=== PATIENT | male | born 1970 | race Hispanic/Latino ===

== ENCOUNTER 2021-08-08 11:43 | Emergency (ER) | payer SELFPAY ==
[2021-08-08] MEDS ORDERED: DIAZEPAM 5 MG TABLET ONE (12:21)
[2021-08-08] MEDS ORDERED: HYDROCODONE/APAP 5/325 MG TAB ONE (12:21)
[2021-08-08 13:34] LABS: Urine Blood Trace-intact (Negative); Urine Glucose Trace (Negative); Urine Protein Negative (Negative); Urine pH 7.5 (5.0-7.0)
[2021-08-08 14:04] LABS: Urine Bacteria NONE SEEN /HPF (NONE SEEN); Urine RBC <5 /HPF (NONE SEEN)
[2021-08-08 14:50] LABS: Absolute Lymphocytes (CBC) 1.8 K/uL (0.7-4.9); Lymphocytes % 12.2 % (15.3-44.8); MPV 8.7 fL (7.6-11.3); RBC Red Blood Cell Count 5.15 M/uL (4.33-5.43)
[2021-08-08 14:58] LABS: Potassium 3.9 mmol/L (3.5-5.1)
--- NOTE | 2021-08-08 15:15 | RAD REPORT ---
EXAM DESCRIPTION: CT - Abdomen Pelvis Wo Contrast - 08/08/2021 2:59 pm CLINICAL HISTORY: Abdominal pain /back pain COMPARISON: None TECHNIQUE: Computed axial tomography of the abdomen and pelvis was obtained. IV and oral contrast we re not requested. All CT scans are performed using dose optimization technique as appropriate and may include automated exposure control or mA/KV adjustment according to patient size. FINDINGS: The evaluation of solid organs, vessels and bowel is limited secondary to the lack of con trast administration. Fatty liver Spleen, pancreas, adrenals and kidneys appear grossly normal. Small bilateral inguinal hernias contain fat There is no evidence of diverticulitis. Mild bladder distention Supraumbilical hernia contains fat. The neck measures 1 centimeter. The herniated sac 5 centimeters. Mild stranding is present within the fat Spondylosis of lumbar spine results in central spinal stenosis IMPRESSION: Moderate supraumbilical hernia containing fat. Mild stranding within the fat may indicat e mild inflammation
--- NOTE | 2021-08-08 15:41 | EDPHYS ---
Physician Documentation [facility] Name: Brett Fischer Age: 50 yrs Sex: Male : 1970 Arrival Date: 08/08/2021 Time: 11:45 Bed 18 Private MD: Ai Cui H ED Physician Aden Almaguer HPI: 08/08 15:47 This 50 yrs old Male presents to ER via Wheelchair with complaints of Hip ms3 Pain, Low Back Pain. 15:47 The patient presents with pain that is acute, with no known mechanism of injury. The ms3 symptoms are located in the low back. The pain radiates to the left leg. The problem was sustained walking. Onset: The symptoms/episode began/occurred acutely, 1 day(s) ago. Modifying factors: The patient symptoms are alleviated by nothing, the patient symptoms are aggravated by any movement. Associated signs and symptoms: The patient has no apparent associated signs or symptoms. Severity of symptoms: At their worst the symptoms were severe, a " 10" out of "10", in the emergency department the symptoms are unchanged. Historical: - Allergies: 12:03 No Known Allergies; ll1 - PMHx: 12:03 Hypertensive disorder; ll1 - Immunization history:: Adult Immunizations. - Social history:: Smoking status: Patient denies any tobacco usage or history of. ROS: 15:47 Constitutional: Negative for fever, and chills. Eyes: Negative for injury, pain, ms3 redness, and discharge, Neck: Negative for injury, pain, and swelling, Cardiovascular: Negative for chest pain, and palpitations. Respiratory: Negative for shortness of breath, cough, wheezing, and pleuritic chest pain, Skin: Negative for injury, rash, and discoloration. 15:47 Back: Positive for pain with movement. 15:47 Skin: Positive for Exam: 15:47 Constitutional: This is a well developed, well nourished patient who is awake, alert, ms3 and in no acute distress. Head/Face: Normocephalic, atraumatic. Neck: Trachea midline, no cervical lymphadenopathy. Supple, full range of motion without nuchal rigidity, or vertebral point tenderness. No Meningismus. Chest/axilla: Normal chest wall appearance and motion. Nontender with no deformity. Cardiovascular: Regular rate and rhythm with a normal S1 and S2. No gallops, murmurs, or rubs. Normal PMI, no JVD. No pulse deficits. Respiratory: Lungs have equal breath sounds bilaterally, clear to auscultation and percussion. No rales, rhonchi or wheezes noted. No increased work of breathing, no retractions or nasal flaring. Abdomen/GI: Soft, non-tender, with normal bowel sounds. No distension or tympany. No guarding or rebound. No evidence of tenderness throughout. Skin: Warm, dry with normal turgor. Normal color with no rashes, no lesions, and no evidence of cellulitis. 15:47 Back: pain, that is severe, of the left low back, ROM is painful, with all movement, normal spinal alignment noted, CVA tenderness, is absent, vertebral tenderness, is not appreciated, muscle spasm, is appreciated in the left low back. Vital Signs: 12:03 BP 192 / 76; Pulse 84; Resp 18; Temp 99.3; Pulse Ox 98% ; Pain 10/10; ll1 14:24 BP 172 / 88; Pulse 76; Resp 17; Temp 98.6(O); Pulse Ox 100% ; Pain 4/10; jh6 16:00 BP 170 / 86; Pulse 72; Resp 18; Pulse Ox 100% ; Pain 4/10; jh6 MDM: 11:56 Patient medically screened. ms3 15:47 Differential diagnosis: strain, sciatica, Herniated disc UTI, Kidney stone. Data ms3 reviewed: vital signs, nurses notes, lab test result(s), radiologic studies, and as a result, I will discharge patient. Data interpreted: Pulse oximetry: on room air is 100 %. Interpretation: normal. Counseling: I had a detailed discussion with the patient and/or guardian regarding: the historical points, exam findings, and any diagnostic results supporting the discharge/admit diagnosis, lab results, radiology results, the need for outpatient follow up, to return to the emergency department if symptoms worsen or persist or if there are any questions or concerns that arise at home. ED course: Discussed labs, CT, physical exam findings with patient. Patient to follow-up with primary care physician in 2 to 3 days. Patient understands and agrees with plan. All questions were answered. Return precautions discussed include worsening symptoms, or any other concerns. On reevaluation patient is alert and oriented x4, in no apparent distress, nontoxic-appearing, speaking full sentences, without bowel/ bladder incontinence, weakness, or numbness.. 08/08 12:29 Order name: Urine Microscopic Only; Complete Time: 14:54 ms3 08/08 13:34 Order name: Urine Dipstick-Ancillary; Complete Time: 14:04 EDMS 08/08 14:07 Order name: CBC with Diff; Complete Time: 15:10 ms3 08/08 14:07 Order name: BMP; Complete Time: 15:10 ms3 08/08 14:07 Order name: CT Abd/Pelvis - Without Contrast; Complete Time: 15:26 ms3 08/08 12:29 Order name: Urine Dipstick-Ancillary (obtain specimen) ms3 08/08 14:07 Order name: Labs collected and sent; Complete Time: 14:37 ms3 Administered Medications: 12:16 Drug: Valium (diazepam) 10 mg Route: PO; [facility] 16:00 Follow up: Response: No adverse reaction [facility] 12:17 Drug: HYDROcodone-acetaminophen 5 mg-325 mg 1 tabs Route: PO; [facility] 16:00 Follow up: Response: No adverse reaction [facility] 15:41 Drug: Ketorolac 15 mg Route: IVP; Site: right antecubital; [facility] 16:00 Follow up: Response: No adverse reaction [facility] Disposition Summary: 08/08/21 15:41 Discharge Ordered Location: Home ms3 Condition: Stable ms3 Diagnosis - Low back pain ms3 Followup: ms3 - With: Ai Cui, - When: 2 - 3 days - Reason: Recheck today's complaints Discharge Instructions: - Discharge Summary Sheet ms3 - Acute Back Pain, Adult ms3 Forms: - Medication Reconciliation Form ms3 - Thank You Letter ms3 - Antibiotic Education ms3 - Prescription Opioid Use ms3 - Work release form 6 Prescriptions: - Ibuprofen 600 mg Oral Tablet - take 1 tablet by ORAL route every 6 hours As needed take with food; 30 tablet; ms3 Refills: 0, Product Selection Permitted - Cyclobenzaprine 10 mg Oral Tablet - take 1 tablet by ORAL route every 8 hours As needed; 30 tablet; Refills: 0, ms3 Product Selection Permitted Signatures: Dispatcher [employer] Venkat Jeter RN RN ll1 Aden Almaguer DO DO ms3 Mariel Erickson RN RN jh6 Corrections: (The following items were deleted from the chart) 17:01 15:47 Constitutional: Negative for fever, and chills. Eyes: Negative for injury, pain, ms3 redness, and discharge, Neck: Negative for injury, pain, and swelling, Cardiovascular: Negative for chest pain, and palpitations. Respiratory: Negative for shortness of breath, cough, wheezing, and pleuritic chest pain, ms3
--- NOTE | 2021-08-08 15:41 | ER ---
Nurse's Notes [facility] Name: Brett Fischer Age: 50 yrs Sex: Male : 1970 Arrival Date: 08/08/2021 Time: 11:45 Bed 18 Private MD: Ai Cui H Diagnosis: Low back pain Presentation: 08/08 12:03 Chief complaint: Patient states: L hip and back pain started yesterday. No trauma or ll1 falls. Went to chiropractor yesterday, no relief. Coronavirus screen: Client denies travel out of the [place] in the last 14 days. At this time, the client does not indicate any symptoms associated with coronavirus-19. Ebola Screen: Patient denies travel to an Ebola-affected area in the 21 days before illness onset. Initial Sepsis Screen: Does the patient meet any 2 criteria? No. Patient's initial sepsis screen is negative. Does the patient have a suspected source of infection? Yes: Bone or joint infection. Risk Assessment: Do you want to hurt yourself or someone else? Patient reports no desire to harm self or others. Onset of symptoms was August 07, 2021. 12:03 Method Of Arrival: Wheelchair ll1 12:03 Acuity: SHAR 3 ll1 Triage Assessment: 12:05 General: Appears uncomfortable, Behavior is calm, cooperative, appropriate for age. ll1 Pain: Complains of pain in L hip Pain currently is 10 out of 10 on a pain scale. Quality of pain is described as aching, throbbing, Aggravated by increased activity. Musculoskeletal: Reports pain in L hip. Historical: - Allergies: 12:03 No Known Allergies; ll1 - PMHx: 12:03 Hypertensive disorder; ll1 - Immunization history:: Adult Immunizations. - Social history:: Smoking status: Patient denies any tobacco usage or history of. Screenin:10 Abuse screen: Denies threats or abuse. jh6 12:10 Nutritional screening: No deficits noted. Tuberculosis screening: No symptoms or risk jh6 factors identified. Fall Risk Gait- Impaired (20 pts.). Assessment: 12:10 General: Appears uncomfortable, Behavior is calm, cooperative. jh6 12:10 Pain: Complains of pain in left lower back and left gluteus mike Pain radiates to jh6 left hamstring and left calf Pain currently is 9 out of 10 on a pain scale. Quality of pain is described as burning, sharp, stabbing, Pain began 1 day ago. Is continuous, Alleviated by repositioning, Aggravated by increased activity, weight bearing. Musculoskeletal: Circulation, motion, and sensation intact. Capillary refill < 3 seconds, Range of motion: limited in left hip and left knee LIMITED DUE TO PAIN 14:22 Reassessment: Patient and/or family updated on plan of care and expected duration. Pain jh6 level reassessed. Patient is alert, oriented x 3, equal unlabored respirations, skin warm/dry/pink. states that pain is better but still present. shooting pain up back when he stood to use the urinal. reports that sitting still in the bed the pain is much better. pain all started after going for an adjustment yesterday at the chiropractor Patient states symptoms have improved. Vital Signs: 12:03 BP 192 / 76; Pulse 84; Resp 18; Temp 99.3; Pulse Ox 98% ; Pain 10/10; ll1 14:24 BP 172 / 88; Pulse 76; Resp 17; Temp 98.6(O); Pulse Ox 100% ; Pain 4/10; jh6 16:00 BP 170 / 86; Pulse 72; Resp 18; Pulse Ox 100% ; Pain 4/10; jh6 ED Course: 11:45 Patient arrived in ED. mr 11:45 Ai Cui DO is Private Physician. mr 11:47 Aden Almaguer DO is Attending Physician. ms3 11:57 Mariel Erickson, RN is Primary Nurse. jh6 11:59 Arm band placed on Patient placed in an exam room, on a stretcher. jh6 12:05 Triage completed. ll1 12:24 Call light in reach. Side rails up X 1. Adult w/ patient. jh6 14:20 Inserted saline lock: 20 gauge in right antecubital area, using aseptic technique. jh6 Blood collected. 14:[address] via stretcher. jh6 15:01 CT Abd/Pelvis - Without Contrast In Process Unspecified. EDMS 15:40 Ai Cui DO is Referral Physician. ms3 16:01 IV discontinued, intact, bleeding controlled, No redness/swelling at site. Pressure jh6 dressing applied. 16:01 No provider procedures requiring assistance completed. jh6 Administered Medications: 12:16 Drug: Valium (diazepam) 10 mg Route: PO; 6 16:00 Follow up: Response: No adverse reaction 6 12:17 Drug: HYDROcodone-acetaminophen 5 mg-325 mg 1 tabs Route: PO; jh6 16:00 Follow up: Response: No adverse reaction 6 15:41 Drug: Ketorolac 15 mg Route: IVP; Site: right antecubital; jh6 16:00 Follow up: Response: No adverse reaction 6 Medication: 16:01 VIS not applicable for this client. 6 Outcome: 15:41 Discharge ordered by . ms3 16:01 Discharged to home ambulatory. 6 16:01 Condition: stable 16:01 Discharge instructions given to patient, family, Instructed on discharge instructions, follow up and referral plans. Demonstrated understanding of instructions, follow-up care, medications, Prescriptions given X 2. 16:02 Patient left the ED. 6 Signatures: Dispatcher [employer] [facility] Pamella Irene Lynsay, RN RN ll1 Aden Almaguer DO DO ms3 Mariel Erickson, RN RN jh6
[2021-08-08] MEDS ORDERED: KETOROLAC 30 MG/ML INJ ONE (15:42)
[2021-08-08 16:10] VITALS: TEMP 98.6; O2SAT 100
[2021-08-08 16:11] VITALS: BP 170/86
== END 2021-08-08 16:02 | disposition home or self-care (01) ==
LOC: ER 11:43
DX: M54.50 Low back pain, unspecified (principal); I10 Essential (primary) hypertension
CPT/HCPCS: 36415; 74176; 80048; 81003; 81015; 85025; 96374; 99284

== ENCOUNTER 2022-07-17 12:38 | Day surgery (SDC) | payer BC ==
[2022-07-16 10:25] VITALS: BMI 34.9
[2022-07-16 11:13] LABS: Absolute Lymphocytes (CBC) 3.1 K/uL (0.7-4.9); Lymphocytes % 39.8 % (15.3-44.8); MPV 8.7 fL (7.6-11.3); RBC Red Blood Cell Count 4.45 M/uL (4.33-5.43)
[2022-07-16 11:18] LABS: Protime INR 1.03
[2022-07-16 11:25] LABS: Potassium 4.2 mEq/L (3.5-5.1)
--- NOTE | 2022-07-16 11:36 | RAD REPORT ---
EXAM DESCRIPTION: [facility] And Lat (2 Views)07/16/2022 10:54 am CLINICAL HISTORY: pre procedure for catheter. Hypertension COMPARISON: CHEST PA AND LAT 2 VIEW dated 12/22/2007 TECHNIQUE: PA and lateral views of the chest. FINDINGS: The lungs are clear. No pneumothorax or effusion. The cardiomediastinal contours are unrem arkable. IMPRESSION: No acute cardiopulmonary process.
[2022-07-17] MEDS ORDERED: NA CHLORIDE 0.9% 500 ML ONE (12:41)
[2022-07-17] MEDS ORDERED: HEPA 1000U/500MLS 2,000 UNIT/1,000 ML BAG IV ONE (14:19)
[2022-07-17] MEDS ORDERED: LIDOCAINE 1% 20 ML MDV ONE (14:19)
[2022-07-17] MEDS ORDERED: FENTANYL CITR 100 MCG/2 ML ONE (14:32)
[2022-07-17] MEDS ORDERED: HEPARIN 5000 UNIT/ML 1 ML VIAL ONE (14:32)
[2022-07-17] MEDS ORDERED: MIDAZOLAM HCL 2 MG/2 ML INJ ONE (14:32)
[2022-07-17] MEDS ORDERED: NITROGLYCERIN 100 MCG/ML SYR (for cath lab use only) IV ONE (14:33)
[2022-07-17] MEDS ORDERED: VERAPAMIL HCL 10 MG/4 ML VIAL IV ONE (14:33)
[2022-07-17] MEDS ORDERED: ATROPINE SULF 1 MG/10 ML SYR IV ONE (14:33)
[2022-07-17] MEDS ORDERED: HEPARIN 10,000 UNIT/10 ML VIAL IV ONE (14:33)
[2022-07-17] MEDS ORDERED: HYDRALAZINE HCL 20 MG/ML VIAL ONE (15:08)
--- NOTE | 2022-07-17 15:34 | OP ---
Date of Procedure: 07/17/2022 Surgeon: KAYLYN MOHAMUD Procedures Performed: 1.Selective coronary angiogram. 2.Left heart catheterization. Indication: 1.Ongoing chest pain with abnormal EKG per the stress test. 2.Shortness of breath. Access: Right radial artery 6-Chadian closed with TR band. Complications: None. Bleeding: Less than 10 mL. Anesthesia: Total sedation time was 30 minutes. Description Of Procedure: After risks, benefits, alternatives were explained, the patient agreed to the procedure and signed informed consent. The patient was brought into the cardiac catheterization laboratory, prepped and draped in the usual sterile fashion. Then, I accessed right radial artery us ing pediatric micropuncture kit, placed 6-Chadian Slender sheath, and took 5-Chadian [place] 4.0 catheter into the aortic root, engaged left main and then right coronary artery, took standard views and then catheter was pushed over the wire into the AV, measured LVEDP and pullback did not record any gradie nt. 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 Conclusion: 1.No significant coronary artery disease. 2.Elevated LVEDP, likely due to diastolic heart failure. Recommendation: Diuretics. SR/MODL Voice ID: [id number] Report ID: [id number]
[2022-07-17 16:05] VITALS: O2SAT 98
[2022-07-17 17:13] VITALS: BP 118/62
== END 2022-07-17 17:14 | disposition home or self-care (01) ==
LOC: CCL 12:38
PROVIDERS: ATTEND Internal Medicine
DX: I20.0 Unstable angina (principal); R94.39 Abnormal result of other cardiovascular function study; R06.02 Shortness of breath; I10 Essential (primary) hypertension
CPT/HCPCS: 85025; 80048; 36415; 85610; 85730; 71046; 93458; 93460; 76937; C1893; Q9966; J1644; J0360; J2001; J0461; J7040; J2250; J3010